=== PATIENT | female | born 1960 | race Caucasian/White ===

== ENCOUNTER 2022-10-26 13:50 | Emergency (ER) | payer OTHER, SELFPAY ==
[2022-10-26 13:54] VITALS: BP 145/101; PULSE 110; RESP 14; TEMP 36.7; O2SAT 100
[2022-10-26 14:04] LABS: Basophils Absolute Auto 0.1 K/mm3 (0.0-0.1); Basophils Percent Auto 0.8 % (0.2-1.2); Eosinophils Absolute Auto 0.1 K/mm3 (0-0.3); Eosinophils Percent Auto 0.6 % (0-4.4); Hematocrit 47.6 % (37.0-47.0); Hemoglobin 16.1 g/dL (12.0-15.0); Immature Granulocyte Absolute 0.03 K/mm3 (0.00-0.031); Immature Granulocyte Percent A 0.4 % (0-0.5); Lymphocytes Absolute Auto 2.12 K/mm3 (0.9-3.2); Lymphocytes Percent Auto 26.7 % (18.3-44.2); Mean Corpuscular HGB Conc 33.8 g/dl (32-36); Mean Corpuscular Hemoglobin 30.3 pg (26-34); Mean Corpuscular Volume 89.6 fl (80-100); Monocytes Absolute Auto 0.5 K/mm3 (0.1-0.6); Monocytes Percent Auto 6.7 % (2.6-8.5); Neutrophils Absolute Auto 5.1 K/mm3 (1.3-6.7); Neutrophils Percent Auto 64.8 % (45.5-73.1); Platelet Count Result 332 k/mm3 (150-375); Red Blood Count 5.31 M/mm3 (4.2-5.4); Red Cell Distribution Width 13.2 % (11.5-14.5); White Blood Count 7.9 K/mm3 (4.5-10.0)
[2022-10-26 14:15] LABS: Alanine Aminotransferase 22 U/L (6-35); Albumin Level 4.7 g/dL (3.5-5.1); Alkaline Phosphatase 55 U/L (38-126); Anion Gap 12 mmol/L (8-16); Aspartate Amino Transferase 20 U/L (14-36); Blood Urea Nitrogen 13 mg/dL (7-17); Carbon Dioxide 22 mmol/L (22-30); Chloride 102 mmol/L (98-107); Estimated CRCL calculation 62 ml/min; Estimated Glomerular Filt Rate > 60; Glucose 87 mg/dL (65-110); Lipase 191 U/L (23-300); Potassium 4.1 mmol/L (3.4-5.0); Sodium 136 mmol/L (137-145)
[2022-10-26 15:16] LABS: Appearance Urine Clear (Clear); Bilirubin Urine Negative (Negative); Blood Urine Negative (Negative); Color Urine Yellow (Yellow); Glucose Urine UA Negative (Negative); Ketones Urine 1+ mg/dL (Negative); Leukocyte Esterase Ur Negative LEU/UL (Negative); Nitrate Urine Negative (Negative); Protein Urine Negative (Negative); Specific Grav Ur 1.008 (1.001-1.035); Urobilinogen Urine 0.2 mg/dL (<2.0)
[2022-10-26 15:22] LABS: Add Urine Microscopic? NO
--- NOTE | 2022-10-26 15:32 | ED.GENADULT ---
HPI - General Adult General Chief complaint: Unspecified Stated complaint: pt states she needs iv fluids Time Seen by Provider: 10/26/22 15:13 History of Present Illness HPI narrative: 62-year-old female history of diverticulitis presented to the emergency department for evaluation of persistent nausea. Patient reports a few days ago she did have an episode of diverticulitis. Patient states she did follow a clear liquid diet and did take her home Phenergan. Patient states she does still have some dehydration but she has no abdominal pain and denies any current nausea or vomiting. Patient does have prior history of diverticulitis and has had multiple colonoscopies. Patient states she is getting her to follow-up with a new GI physician and is unsure of their name. Related Data Allergies Allergy/AdvReac Type Severity Reaction Status Date / Time Penicillins Allergy Severe Anaphylactic Verified 10/26/22 15:48 Shock codeine AdvReac Mild Chills Verified 10/26/22 15:53 Review of Systems Review of Systems: All systems reviewed & are unremarkable except as noted in HPI and below Exam Narrative: APPEARANCE: Well appearing, no pain, no distress, well-nourished. HEAD: normocephalic, atraumatic. EYES: PERRLA/EOMI, conjunctivae clear. NOSE: Normal no drainage NECK: Supple. No adenopathy, no masses. RESPIRATORY: Airway patent, respirations nonlabored. Clear to auscultation bilaterally, no rales, rhonchi, wheezing. CARDIOVASCULAR: Regular rate and rhythm without murmurs rubs or gallops. ABDOMINAL: Soft, nontender, nondistended, normal bowel sounds MUSCULOSKELETAL: Moves all extremities. Strength/ROM intact, No edema, No calf tenderness. NEURO: Alert. Cranial nerves II through XII intact. Grossly intact SKIN: Warm, dry. Normal Color Course Course Emergency Course: 62-year-old female presented ED for evaluation of persistent dehydration. Patient denies any current nausea vomiting or abdominal pain. Patient's abdomen was very soft and nontender. Patient was offered a CT scan due to her having the recent diverticulitis Patient was afebrile with no leukocytosis and a stable hemoglobin. No significant abnormalities on that her CMP and UA was positive for ketones but no underlying evidence of infection. Patient reports she does feel improved with treatment. Patient was encouraged of close follow-up with her primary care physician and GI physician Vital Signs Vital signs: Vital Signs Temperature 98.0 F 10/26/22 13:54 Pulse Rate 110 H 10/26/22 13:54 Respiratory Rate 14 10/26/22 13:54 Blood Pressure 145/101 H 10/26/22 13:54 Pulse Oximetry 100 10/26/22 13:54 Oxygen Delivery Room Air 10/26/22 13:54 Temperature 98.0 F 10/26/22 13:54 Pulse Rate 89 10/26/22 18:13 Respiratory Rate 14 10/26/22 13:54 Blood Pressure 142/96 H 10/26/22 18:13 Pulse Oximetry 99 10/26/22 18:13 Oxygen Delivery Room Air 10/26/22 13:54 Medical Decision Making Vital Signs Vital Signs: Vital Signs Temperature 98.0 F 10/26/22 13:54 Pulse Rate 110 H 10/26/22 13:54 Respiratory Rate 14 10/26/22 13:54 Blood Pressure 145/101 H 10/26/22 13:54 Pulse Oximetry 100 10/26/22 13:54 Oxygen Delivery Room Air 10/26/22 13:54 Temperature 98.0 F 10/26/22 13:54 Pulse Rate 89 10/26/22 18:13 Respiratory Rate 14 10/26/22 13:54 Blood Pressure 142/96 H 10/26/22 18:13 Pulse Oximetry 99 10/26/22 18:13 Oxygen Delivery Room Air 10/26/22 13:54 Lab Data Lab results reviewed: Yes I reviewed the patient's lab results. 10/26/22 13:59 10/26/22 13:59 Labs: Lab Results 10/26/22 10/26/22 Range/Units 13:59 15:10 WBC 7.9 (4.5-10.0) K/mm3 RBC 5.31 (4.2-5.4) M/mm3 Hgb 16.1 H (12.0-15.0) g/dL Hct 47.6 H (37.0-47.0) % MCV 89.6 (80-100) fl MCH 30.3 (26-34) pg MCHC 33.8 (32-36) g/dl RDW 13.2 (11.5-14.5) % Plt Count 332 (150-375) k/
[2022-10-26] MEDS: SODIUM CHLORIDE 0.9% IV 1,000 ML 999 ML IV CONT (15:46)
[2022-10-26] MEDS: Please add drug allergy info to patient profile. 1 EACH XX (15:51)
[2022-10-26 18:13] VITALS: BP 142/96; PULSE 89; O2SAT 99
== END 2022-10-26 18:14 | disposition home or self-care (01) ==
PROVIDERS: Emergency Medicine; Emergency Provider Emergency Medicine
DX: E86.0 Dehydration (principal)
CPT/HCPCS: 36415; 80053; 81003; 83690; 85025; 96360; 99283; J7030

== ENCOUNTER 2023-12-31 00:53 | Day surgery (SDC) | payer OTHER, SELFPAY ==
[2023-12-28 10:23] VITALS: BMI 23.2
--- NOTE | 2023-12-28 10:32 | PC.NURSE ---
Report to the Outpatient Waiting Room, entrance under the green pavilion located off [facility], at time _1015_ on date _[id number]_. Planned Procedure Time: _1215_.? Time changes happen often and if your time is changed the preop area will call you the afternoon before. - You and your visitor will be asked to self-screen and do not enter if you have any COVID symptoms. Please call surgeon if you need to reschedule. - A mask is optional within the hospital at this time. May have clear liquids (water, carbonated beverages, clear teas, apple juice) with a maximum of 20 ounces until 415am then nothing to drink until after surgery. - No food from midnight until time of surgery and no smoking Take only the following medications with a SIP of water on the morning of surgery: ____Alprazolam if needed DO NOT STOP ANY OF YOUR OTHER PRESCRIPTION MEDICATIONS PRIOR TO SURGERY EXCEPT THE FOLLOWING Medications to discontinue per physician All vitamins and supplements Date to take last npvo___[id number] Please no make-up, nail estonian, hairspray, perfume, deodorant, or body powder the day of surgery.? No jewelry (including any body piercings) or valuables the day of surgery, leave them at home.? Please take a shower or bath the night before, or the morning of, surgery with an antibacterial soap.? Wear comfortable, loose fitting clothing.? - Jewelry must be removed prior to entering the operating room.? Rings and piercings that are not removed may be cut off. - The hospital will not accept responsibility for valuables.? - Please leave all valuables, including medications, at home the day of surgery. If you are going home after surgery, a licensed taxi driver supervisor must drive you home.? - NO public transportation without another adult if you receive anesthesia. - We recommend that an adult stay with you for 24 hours following discharge. - We also recommend that you do not drive, make important decision, drink alcoholic beverages, or take any drugs that were not prescribed by your health care provider for at least 24 hours after your discharge time. Follow any additional instructions given to you from your surgeon. Telephone instructions given to _Misti_and asked if any additional questions and then verbalized understanding. Patient advised to call surgeon office or pre surgery nurse liaison [phone] if any additional questions.
--- NOTE | 2023-12-31 07:11 | PM.HPGS ---
History of Present Illness History of Present Illness Chief complaint: Injury of digital nerve of left index finger Narrative: Patient seen and examined in pre-operative holding area. No interval change in medical history or symptoms. Patient recalls previous discussion of benefits and alternatives to procedure. Continues to desire to proceed with left index finger wound exploration and possible digital nerve repair, possible conduit/nerve tape. Reviewed procedure, post-op expectations and risks including but not limited to bleeding, infection, injury to tendon/nerve/vessel, decreased hand function, stiffness, RSD, no change or worsening of symptoms. I discussed the possible use of assistants and their participation in the case. Patient stated understanding and signed the consent form wishing to proceed. Review of Systems Review of Systems: All systems reviewed & are unremarkable except as noted in HPI and below PMFSH Social History Social History (Updated 11/09/23 @ 08:42 by Manasa Lorenzo MA) Smoking status: Never smoker Alcohol intake: current Drinks per week: 3 Substance use type: marijuana Living arrangements: with family Spiritual care concerns: No Meds Home Medications and Allergies Home Medications Medication Instructions Recorded Confirmed Type alprazolam 0.25 mg tablet 0.25 mg PO TID PRN Anxiety 12/28/23 12/28/23 History ascorbic acid (vitamin C) 500 mg 250 mg PO DAILY 12/28/23 12/31/23 History tablet (Vitamin C) biotin 10,000 mcg capsule 10,000 mcg PO DAILY 12/28/23 12/31/23 History dextroamphetamine-amphetamine 10 10 mg PO DAILY 12/28/23 12/31/23 History mg tablet famotidine 40 mg tablet 40 mg PO DAILY 12/28/23 12/31/23 History losartan 100 1 tablet PO DAILY 12/28/23 12/31/23 History mg-hydrochlorothiazide 12.5 mg tablet magnesium 250 mg tablet 250 mg PO DAILY 12/28/23 12/31/23 History omeprazole 40 mg capsule,delayed 40 mg PO DAILY 12/28/23 12/31/23 History release vitamin A 2,400 mcg capsule 2,400 mcg PO DAILY 12/28/23 12/31/23 History zinc 50 mg tablet 50 mg PO DAILY 12/28/23 12/31/23 History Allergies Allergy/AdvReac Type Severity Reaction Status Date / Time Penicillins Allergy Severe Anaphylactic Verified 12/31/23 09:43 Shock codeine AdvReac Mild Itching Verified 12/31/23 09:43 Exam Narrative: unchanged Assessment and Plan Assessment and plan (1) Laceration of digital nerve of finger: Qualifiers: Encounter type: initial encounter Qualified Code(s): S64.40XA - Injury of digital nerve of unspecified finger, initial encounter Code(s): S64.40XA - Injury of digital nerve of unspecified finger, initial encounter Status: Acute Assessment and Plan: cont as above
--- NOTE | 2023-12-31 07:11 | W.PM.PROC2 ---
Procedure Note - Detailed Date of Procedure 12/31/23 Pre-op Diagnosis Injury of digital nerve of left index finger Post-op Diagnosis Same Procedure Performed left index finger radial digital nerve repair Surgeon Anthony Seymour MD Anesthesia MAC Description of Procedure INFORMED CONSENT: The patient was seen and examined and marked in the pre-op area.? The patient signed the consent form. PROCEDURE IN DETAIL:The patient taken back to OR on the stretcher in supine position. Time out performed with anesthesia, surgeon and staff agreeing on patient's name site and surgery to be performed SCDs were placed on the lower extremities and inflated. A tourniquet was placed on {left} upper extremity and antibiotics given IV After anesthesia administered sedation I injected {4}cc 1%lido and 0.5% marcaine plain for digital block in the palm The?{left upper extremity}?was prepped and draped in sterile fashion the??{left upper extremity} was? exsanguinated with Esmarch bandage and tourniquet inflated to 250mmHg I proceeded with making a vikash style incision with 15 blade scalpel utilizing patient's previous laceration scar through skin and dermis with a 15 blade scalpel. Littler scissors were used to elevate skin flaps. The flexor sheath was identified and no evidence of violation and was intact. The radial digital nerve was identified and noted to be fully transected and encased in scar below the laceration site. The radial artery was also patially encased in this scar tissue and no further attempt at exploration of it was attempted to reduce chance of any injury and if found to be lacerated due to timing no repair would be attempted anyway. The proximal and distal ends of the digital nerve were freed from scar and ends freshened with micro scissors. glistening fascicles were noted on the proximal aspect. Next the nerve was repaired primarily using 2mm nerve tape utilizing the brandi sutures on device to coapt the nerve with minimal tension. The nerve wrap was completed and mosited with saline. There was good stability to the repair and no clear gapping of the nerve. The wound was irrigated with normal saline and closed with 4-0 chromic A dressing of xeroform, 4x4, claudia, and a finger splint was applied for patient safety, security, and comfort and secured with an herbie bandage after the tourniquet was let down noting the hand was warm and well perfused. The patient was then awaken from anesthesia and transferred to the recovery room in stable condition.? Complications - none EBL- 0cc Disposition - home in stable conditions Rakel Snyder PA-C was essential for positioning, retraction, closure and dressing placement [facility] [place] Surgery - Charge Forward: Surgery Billing ([id number] same for rakel adding modifier )
[2023-12-31 09:21] VITALS: BP 124/79; PULSE 75; RESP 16; TEMP 36.4; O2SAT 100
[2023-12-31] MEDS: LACTATED RINGERS 1,000 ML 30 ML IV CONT (09:45)
[2023-12-31 10:21] LABS: Anion Gap 7 mmol/L (4-12); Blood Urea Nitrogen 16 mg/dL (7-17); Calcium 8.9 mg/dL (8.4-10.2); Carbon Dioxide 28 mmol/L (22-30); Chloride 103 mmol/L (98-107); Estimated CRCL calculation 62 ml/min; Estimated Glomerular Filt Rate > 60; Glucose 86 mg/dL (65-110); Potassium 3.5 mmol/L (3.4-5.0); Sodium 138 mmol/L (137-145)
[2023-12-31] MEDS: ceFAZolin 2 GM/D5W 50 ML 2 GM/50 ML BAG IVPB (11:36)
--- NOTE | 2023-12-31 11:36 | WPDANESEPPF ---
Anes - Initial Pre Proc Eval Procedure: Operation Date: 12/31/23 11:15 Proposed Procedures p Left Index Finger Radial Nerve Exploration and Repair - Anthony Seymour MD Date/Time: 12/31/23 11:36 Surgeon: Anthony Seymour MD Pre Op Diagnosis: Injury of digital nerve of left index finger Patient Data Age: 63 Gender: F Height: 1.63 m Weight: 60 kg Last Vital Signs Temp 97.6 F 12/31/23 09:21 Pulse 75 12/31/23 09:21 Resp 16 12/31/23 09:21 BP 124/79 12/31/23 09:21 Pulse Ox 100 12/31/23 09:21 O2 Del Method Room Air 12/31/23 09:21 Allergies Allergy/AdvReac Type Severity Reaction Status Date / Time Penicillins Allergy Severe Anaphylactic Verified 12/31/23 09:43 Shock codeine AdvReac Mild Itching Verified 12/31/23 09:43 Home Medications Medication Instructions Recorded Confirmed Type alprazolam 0.25 mg tablet 0.25 mg PO TID PRN Anxiety 12/28/23 12/28/23 History ascorbic acid (vitamin C) 500 mg 250 mg PO DAILY 12/28/23 12/31/23 History tablet (Vitamin C) biotin 10,000 mcg capsule 10,000 mcg PO DAILY 12/28/23 12/31/23 History dextroamphetamine-amphetamine 10 10 mg PO DAILY 12/28/23 12/31/23 History mg tablet famotidine 40 mg tablet 40 mg PO DAILY 12/28/23 12/31/23 History losartan 100 1 tablet PO DAILY 12/28/23 12/31/23 History mg-hydrochlorothiazide 12.5 mg tablet magnesium 250 mg tablet 250 mg PO DAILY 12/28/23 12/31/23 History omeprazole 40 mg capsule,delayed 40 mg PO DAILY 12/28/23 12/31/23 History release vitamin A 2,400 mcg capsule 2,400 mcg PO DAILY 12/28/23 12/31/23 History zinc 50 mg tablet 50 mg PO DAILY 12/28/23 12/31/23 History tramadol 50 mg tablet 50 mg PO Q6H PRN pain #12 tabs 12/31/23 Rx Laboratory Tests 12/31/23 09:53 Sodium 138 mmol/L (137-145) Potassium 3.5 mmol/L (3.4-5.0) Chloride 103 mmol/L (98-107) Carbon Dioxide 28 mmol/L (22-30) Anion Gap 7 mmol/L (4-12) BUN 16 mg/dL (7-17) Creatinine 0.70 mg/dL (0.7-1.0) Estim Creat Clear Calc 62 ml/min Estimated GFR > 60 (59 - ) Glucose 86 mg/dL (65-110) Calcium 8.9 mg/dL (8.4-10.2) Patient hx anesthesia problems: none Family hx anesthesia problems: none Results Review: All pre-operative results and documents have been reviewed as part of the pre-operative evaluation. [facility] Social History Social History (Updated 11/09/23 @ 08:42 by Manasa Lorenzo MA) Smoking status: Never smoker Alcohol intake: current Drinks per week: 3 Substance use type: marijuana Living arrangements: with family Spiritual care concerns: No Anes - Eval Final PreProcedure Day of Procedure 12/31/23 11:36 Patient weight: normal Heart: regular rate and rhythm Lungs: clear to auscultation Airway: Mallampati scale class II Neurological: alert and oriented Last oral intake: >/= 8 hours ASA classification: III Emergent: no Anesthetic plan: proceed Anesthesia type and monitoring: general GIVS and standard monitoring Results Review: All pre-operative results and documents have been reviewed as part of the pre-operative evaluation. Informed Consent: The patient's anesthetic plan and its attendant risks and benefits were discussed with the patient/family/POA. Questions were solicited and answers provided to the satisfaction of the patient/family/POA.
[2023-12-31] MEDS: LIDOCAINE HCL 1% LOCAL INJ 20 ML VIAL 10 ML INFILTRATE (11:48)
[2023-12-31] MEDS: BACITRACIN OINTMENT 15 GM TUBE 1 APPLIC TOPICAL (12:19)
[2023-12-31 12:35] VITALS: BP 125/82; PULSE 76; RESP 16; O2SAT 98
[2023-12-31] MEDS: ARTIFICIAL TEARS OPHTH SOLN 15 ML BOTTLE 1 DROP EACH EYE (13:01)
[2023-12-31] MEDS: PROPARACAINE HCL 0.5% 15 ML OPHTH SOLN 1 DROP EACH EYE (13:04)
[2023-12-31 13:05] VITALS: BP 120/100; PULSE 88; RESP 18; O2SAT 100
[2023-12-31 13:32] VITALS: BP 115/71; PULSE 64; RESP 16; O2SAT 100
[2023-12-31 14:05] VITALS: BP 114/71; PULSE 68; RESP 16; O2SAT 100
[2023-12-31 14:40] VITALS: BP 125/84; PULSE 74; RESP 16; O2SAT 100
== END 2023-12-31 14:40 | disposition home or self-care (01) ==
PROVIDERS: Anesthesiology; Visit Provider Plastic Surgery
PROC: (CPT 64831; principal; 2023-12-31 11:15)
DX: S64.491A Injury of digital nerve of left index finger, initial encounter (principal); F12.90 Cannabis use, unspecified, uncomplicated; Z79.891 Long term (current) use of opiate analgesic; X58.XXXA Exposure to other specified factors, initial encounter
CPT/HCPCS: 64831; 36415; 80048; A9270; J0690; J1100; J2250; J2405; J2704; J3010; J7120